=== PATIENT | male | born 1960 | race African-American/Black ===

== ENCOUNTER 2018-05-28 05:51 | Emergency (ER) | payer MEDICAID, OTHER ==
[~2018-05-28] VITALS: Ht 180.3 cm; Wt 68.0 kg
[~2018-05-28 05:51] MED LIST: AMOXICILLIN500 MG ORAL; NKM
[2018-05-28] MEDS ORDERED: ASPIR 8181 MG ORAL (06:03)
[2018-05-28] MEDS ORDERED: BENADRYL25 MG ORAL (06:22)
[2018-05-28] MEDS ORDERED: PREDNISONE20 MG ORAL (06:22)
[2018-05-28] MEDS ORDERED: PEPCID AC20 M2 PO (06:27)
--- NOTE | 2018-05-28 06:30 | Emergency Room Report ---
History of Present Illness General Chief Complaint: Eye Problems Source: Patient Present Illness HPI Patient presents with complaints of swelling to the right eyelid Patient reports that he was stung by a bee yesterday in the afternoon There is some increased itching After waking up this morning he noticed increased swelling Denies any change with vision denies any short of breath denies any chest pain Denies any back or flank pain Allergies: Coded Allergies: No Known Allergies (Unverified , 02/11/14) Patient History Past Medical History: see triage record Pertinent Family History: none Reviewed Nursing Documentation: PMH: Agreed; PSxH: Agreed Nursing Documentation-PMH Past Medical History: No Stated History Hx Cardiac Problems: No Hx Cancer: No Hx Gastrointestinal Problems: No Hx Neurological Problems: No Review of Systems All Other Systems: negative except mentioned in HPI Physical Exam Vital Signs Date Time Temp Pulse Resp B/P (MAP) Pulse Ox O2 Delivery O2 Flow Rate FiO2 05/28/18 05:59 98.2 77 16 126/83 100 Room Air Sp02 EP Interpretation: reviewed, normal General Appearance: well appearing, no apparent distress Head: normocephalic, atraumatic Eyes: right eye other - Erythema and edema swelling involving the bilateral upper and lower right eyelid, conjunctiva is clear, to a minimal effect on the left side as well however the right area is more significant; bilateral eye PERRL, bilateral eye EOMI ENT: normal pharynx, no angioedema Neck: supple, thyroid normal Respiratory: lungs clear, normal breath sounds, no retraction, no accessory muscle use Cardiovascular #1: regular rate, rhythm Gastrointestinal: non tender, soft Musculoskeletal: normal inspection, back normal Neurologic: alert, oriented x3, responsive Skin: other - As above Lymphatic: no adenopathy Medical Decision Making Diagnostic Impression: Primary Impression: insect bite ER Course Patient has sustained an insect bite likely bee sting there is no evidence of foreign body retained Patient has local reaction and treated aggressively in the emergency room And will have initial conservative outpatient trial Last Vital Signs Date Time Temp Pulse Resp B/P (MAP) Pulse Ox O2 Delivery O2 Flow Rate FiO2 05/28/18 05:59 98.2 77 16 126/83 100 Room Air Status: improved Disposition: HOME, SELF-CARE Condition: Improved Scripts Famotidine (PEPCID AC) 20 Mg Tablet 20 MG PO DAILY, #20 TAB Prov: Dawit Dozier DO 05/28/18 Diphenhydramine Hcl* (BENADRYL*) 25 Mg Capsule 25 MG ORAL Q8HR PRN for Itching, #20 CAP Prov: Dawit Dozier DO 05/28/18 Prednisone* (PREDNISONE*) 20 Mg Tablet 20 MG ORAL BID, #14 TAB Prov: Dawit Dozier DO 05/28/18 [facility] ([facility]P) Patient Instructions: Insect Bite, [id number] Additional Instructions: Patient is provided with the discharge instructions notified to follow up with primary doctor in the next 2-3 days otherwise return to the er with any worsening symptoms. Please note that this report is being documented using [employer] technology. This can lead to erroneous entry secondary to incorrect interpretation by the dictating instrument. Dawit Dozier DO May 28, 2018 06:30
[2018-05-28 06:45] VITALS: BP 126/83
[2018-05-28 07:00] VITALS: BP 126/83
== END 2018-05-28 06:55 | disposition home or self-care (01) ==
LOC: EMR 06:22
DX: S00.262A Insect bite (nonvenomous) of left eyelid and periocular area, initial encounter (principal); S00.261A Insect bite (nonvenomous) of right eyelid and periocular area, initial encounter; W57.XXXA Bitten or stung by nonvenomous insect and other nonvenomous arthropods, initial encounter; H01.9 Unspecified inflammation of eyelid; Y93.9 Activity, unspecified; Y92.9 Unspecified place or not applicable; Y99.9 Unspecified external cause status
CPT/HCPCS: 99283; J7512

== ENCOUNTER 2018-11-10 14:26 | Outpatient (CLI) | payer OTHER ==
[2018-11-10 14:00] VITALS: BP 118/67
[~2018-11-10 14:26] MED LIST changes: +ASPIR 8181 MG ORAL; +BENADRYL25 MG ORAL; +PEPCID AC20 M2 PO; +PREDNISONE20 MG ORAL
--- NOTE | 2018-11-11 19:00 | Consultation ---
DATE OF CONSULTATION: 11/10/2018 GASTROENTEROLOGY CONSULTATION: CONSULTING PHYSICIAN: Samson Ibarra M.D. CHIEF COMPLAINT: Referred to us for screening colonoscopy evaluation. HISTORY OF PRESENT ILLNESS: The patient is a very pleasant 57-year-old male without any significant past medical history was referred to us for screening colonoscopy evaluation. PAST MEDICAL HISTORY: None. PAST SURGICAL HISTORY: None. MEDICATION: Aspirin. FAMILY HISTORY: No family history of GI malignancies. SOCIAL HISTORY: The patient drinks alcohol socially. Denies any tobacco, alcohol, or drug abuse. FAMILY HISTORY: Noncontributory. ALLERGIES: No known drug allergies. REVIEW OF SYSTEMS: A 10-point review of systems was performed and pertinent positives in HPI. PHYSICAL EXAMINATION: VITAL SIGNS: Temperature 97.7, pulse 61, respirations 20, blood pressure is 110/61. HEENT: Normocephalic and atraumatic. Sclerae anicteric. NECK: Supple. No evidence of lymphadenopathy. CARDIOVASCULAR: Regular rate and rhythm. Plus S1 and S2. No obvious murmur. LUNGS: Clear to auscultation bilaterally. ABDOMEN: Positive bowel sounds. Soft and nontender. No rebound. No guarding. No peritoneal sign. EXTREMITIES: No cyanosis, no clubbing, no edema ASSESSMENT AND PLAN: The patient is a 57-year-old male, admitted for screening colonoscopy. Plan to get authorization. Meanwhile, we will give him the prep instruction and we will schedule when the authorization is obtained. Samson Ibarra M.D. DR: EVERTON JOB#: [id number] CC:
== END 2018-11-10 15:55 | disposition home or self-care (01) ==
LOC: PAN 14:26
DX: Z01.818 Encounter for other preprocedural examination (principal); Z79.82 Long term (current) use of aspirin

== ENCOUNTER 2020-03-15 18:07 | Emergency (ER) | payer OTHER ==
[~2020-03-15] VITALS: Ht 183.5 cm; Wt 65.8 kg
--- NOTE | 2020-03-15 18:51 | NUR ---
ED Nurse Note: Pt walked into ED for L hand insect bite since yesterday. Pt is alert and orientedx4, ambulatory. Pt has been seen by PA. Pt has swelling since yesterday L hand.
[2020-03-15 18:52] VITALS: BP 119/76
[2020-03-15] MEDS ORDERED: Cephalexin 500mg cap ORAL ONE (19:00)
[2020-03-15] MEDS ORDERED: Tetanus/Diptheria/Pertussis IM ONE (19:00)
[2020-03-15] MEDS ORDERED: Bactrim-DS 1 tab ORAL ONE (19:00)
--- NOTE | 2020-03-15 19:06 | Emergency Room Report ---
History of Present Illness General Chief Complaint: Skin Rash/Abscess Source: Patient Present Illness HPI 59-year-old male presents to the emergency department complaining of swelling, erythema and warmth as well as some itchiness to the dorsum of the left hand. Patient reports symptoms have been progressive since yesterday. Patient states he believes he was bitten by an insect initially. He denies fevers or chills. He is not sure when his last tetanus vaccination was. He denies significant past medical history or history of immune compromise. He is not currently taking any medications. Patient is right-hand dominant. He reports some tenderness upon palpation. Patient reports difficulty with making a fist due to soft tissue swelling. No other aggravating or relieving factors at this time. Denies paresthesias or loss of gross motor movements. Denies lesions elsewhere on the body. Denies swelling of the lips or tongue. Patient denies wheezing, shortness of breath or difficulty breathing. Allergies: Coded Allergies: No Known Allergies (Unverified , 02/11/14) COVID-19 Screening Contact w/high risk pt: No Experienced COVID-19 symptoms?: No COVID-19 Testing performed DESIZING PAD OPERATOR: No Patient History Past Medical History: see triage record Past Surgical History: none Pertinent Family History: none Reviewed Nursing Documentation: PMH: Agreed; PSxH: Agreed Nursing Documentation-PMH Past Medical History: No Stated History Hx Cardiac Problems: No Hx Cancer: No Hx Gastrointestinal Problems: No Hx Neurological Problems: No Review of Systems All Other Systems: negative except mentioned in HPI Physical Exam Vital Signs Date Time Temp Pulse Resp B/P (MAP) Pulse Ox O2 Delivery O2 Flow Rate FiO2 03/15/20 18:44 96.8 65 17 114/70 (85) 96 Room Air Sp02 EP Interpretation: reviewed, normal General Appearance: no apparent distress, alert, GCS 15, non-toxic Head: normocephalic, atraumatic Eyes: bilateral eye normal inspection, bilateral eye PERRL ENT: hearing grossly normal, normal voice Neck: full range of motion Respiratory: lungs clear, normal breath sounds, speaking full sentences Cardiovascular #1: regular rate, rhythm, normal capillary refill Cardiovascular #2: 2+ radial (R), 2+ radial (L) Musculoskeletal: decreased range of motion - making a fist secondary to ST swelling.- Left hand, normal range of motion, gait/station normal, swelling - LEft hand and forearm, dorsally. Neurologic: alert, motor strength/tone normal, oriented x3, sensory intact, responsive, speech normal, grossly normal Psychiatric: judgement/insight normal Skin: other - cellulitis of the left hand with some progression towards the forearm. 1cm area of induration on the dorsum of the left hand near the wrist. There is erythema and warmth. Moderate ST swelling of the dorsum of the left hand and distal forearm. No d/c noted, no bleeding, no blisters or vesicles. No palpable fluctuance. Lymphatic: no adenopathy Medical Decision Making PA Attestation Dr. Bey Is my supervising Physician whom patient management has been discussed with. Diagnostic Impression: Primary Impression: Cellulitis Qualified Codes: L03.114 - Cellulitis of left upper limb ER Course 59-year-old male presents to the emergency department complaining of swelling, erythema and warmth as well as some itchiness to the dorsum of the left hand. Patient reports symptoms have been progressive since yesterday. Patient states he believes he was bitten by an insect initially. He denies fevers or chills. He is not sure when his last tetanus vaccination was. He denies significant past medical history or history of immune compromise. He is not currently taking any medications. Patient is right-hand dominant. He reports some tenderness upon palpation. Patient reports difficulty with making a fist due to soft tissue swelling. No other aggravating or relieving factors at this time. Denies paresthesias or loss of gross motor movements. Denies lesions elsewhere on the body. Denies swelling of the lips or tongue. Patient denies wheezing, shortness of breath or difficulty breathing. Ddx considered but are not limited to cellulitis, Necrotizing fasciitis, allergic reaction, burn, dermatitis, fracture, d/L, gout, localized allergic reaction, abscess just to name a few. Vital signs: are WNL, pt. is afebrile H&PE are most consistent with cellulitis of the left hand with some progression towards the forearm. 1cm area of induration on the dorsum of the left hand near the wrist. There is erythema and warmth. Moderate ST swelling of the dorsum of the left hand and distal forearm. No d/c noted, no bleeding, no blisters or vesicles. No palpable fluctuance. No evidence of acute impending airway compromise or anaphylaxis. ORDERS: none required at this time, the diagnosis is clinical ED INTERVENTIONS: -Tdap administered. -Bactrim DS PO - Keflex 500mg PO -Tylenol #3 PO -- Left arm Sling applied by dairy technician. Pt. remains neurovascularly intact. -- D.w Pt. to have 48 hour wound check follow up. Skin pen was used to alvina affected area. DISCHARGE: At this time pt. is stable for d/c to home. Will provide printed patient care instructions, and any necessary prescriptions. Care plan and follow up instructions have been discussed with the patient prior to discharge. Last Vital Signs Date Time Temp Pulse Resp B/P (MAP) Pulse Ox O2 Delivery O2 Flow Rate FiO2 03/15/20 18:52 96.8 78 18 119/76 95 Room Air Status: improved Disposition: HOME, SELF-CARE Condition: Stable Scripts Acetaminophen With Codeine (T#3) (TYLENOL #3 TAB*) Y Tab 1 TAB ORAL Q6H PRN for For Pain, #12 TAB Prov: Tricia Ahmadi 03/15/20 Trimethoprim/Sulfamethoxazole 160/800* (BACTRIM DS TABLET*) 1 Each Tablet 1 TAB ORAL TWICE A DAY for 14 Days, #28 TAB Prov: Tricia Ahmadi 03/15/20 Cephalexin* (KEFLEX*) 500 Mg Capsule 500 MG ORAL EVERY 6 HOURS for 14 Days, #56 CAP Prov: Tricia Ahmadi 03/15/20 Referrals: [facility] ([facility]P) [facility] Patient Instructions: Cellulitis Additional Instructions: Take medications as directed. Do not drink alcohol, drive, or operate heavy machinery while taking TYlenol # 3 as this may cause drowsiness. RETURN TO ED in 48 HOURS FOR WOUND CHECK Follow up with a Primary Care Provider in 3-5 days, even if your symptoms have resolved. --Please review list of primary care clinics, if you do not already have a primary care provider Return sooner to ED if new symptoms occur, or current symptoms become worse. - Please note that this Emergency Department Report was dictated using [employer] edge rounder technology software, occasionally this can lead to erroneous entry secondary to interpretation by the dictation equipment. Tricia Ahmadi Mar 15, 2020 19:06
--- NOTE | 2020-03-15 19:10 | NUR ---
ED Nurse Note: pt aao x 4, ambulates with steady gait. Awaiting further orders from ERPA.
[2020-03-15] MEDS ORDERED: BACTRIM DS TAB1 EAC1 ORAL (19:12)
[2020-03-15] MEDS ORDERED: ACETAMINOPHEN-1 EAC1 ORAL (19:12)
[2020-03-15] MEDS ORDERED: CEPHALEXIN500 MG ORAL (19:12)
--- NOTE | 2020-03-15 19:15 | NUR ---
ED Nurse Note: all medications administered, pt tolerated well no ss of distress noted. will continue to monitor.
[2020-03-15 19:21] VITALS: BP 121/72
--- NOTE | 2020-03-15 19:21 | NUR ---
ER DISCHARGE NOTE: Patient is cleared to be discharged home per ERMD, pt is aox4, 100% on room air, with stable vital signs. pt was given dc and prescription instructions, pt was able to verbalize understanding, pt id band removed. pt is able to ambulate with steady gait. pt took all belongings.
== END 2020-03-15 19:21 | disposition home or self-care (01) ==
LOC: EMR 18:42
DX: L03.114 Cellulitis of left upper limb (principal)
CPT/HCPCS: 90471; 90715; Z7502; 99282